=== PATIENT | male | born 1980 | race Two or more races ===

== ENCOUNTER 2023-01-19 08:00 | Emergency (ER) | payer OTHER ==
[~2023-01-19] VITALS: Ht 180.3 cm; Wt 82.0 kg
[2023-01-19 09:44] VITALS: BP 134/80
[2023-01-19] MEDS ORDERED: IBUP800T27 PO (10:02)
== END 2023-01-19 10:18 | disposition home or self-care (01) ==
LOC: EDBD 08:00 → ER 08:00
DX: S29.011A Strain of muscle and tendon of front wall of thorax, initial encounter (principal); S29.012A Strain of muscle and tendon of back wall of thorax, initial encounter; R07.89 Other chest pain; V43.62XA Car passenger injured in collision with other type car in traffic accident, initial encounter; Y93.89 Activity, other specified; Y92.89 Other specified places as the place of occurrence of the external cause; Y99.8 Other external cause status
CPT/HCPCS: 71046; 73010; 93005